=== PATIENT | female | born 1985 | race Caucasian/White ===

== ENCOUNTER 2017-07-26 11:56 | Emergency (ER) | payer BC ==
[2017-07-26] MEDS ORDERED: Sodium Chloride 0.9% 1,000 ML IV ONE (12:56)
[2017-07-26] MEDS ORDERED: Metoclopramide 10 MG/2 ML SDV IVPUSH ONE (12:56)
[2017-07-26 14:02] LABS: CHLORIDE,CL 107 mmol/L (98-110); SODIUM,NA 142 mmol/L (136-146)
[2017-07-26] MEDS ORDERED: Pantoprazole 40 MG Vial IVPUSH ONE (14:14)
[2017-07-26] MEDS ORDERED: Prochlorperazine 10 MG/2 ML SDV IVPUSH ONE (14:14)
[2017-07-26] MEDS ORDERED: Ondansetron 4 MG/2 ML SDV IVPUSH ONE (14:14)
--- NOTE | 2017-07-26 15:25 | EDM.PDOC ---
ED HPI GENERAL MEDICAL PROBLEM - General Chief Complaint: Abdominal Pain Stated Complaint: ABDOMINAL PAIN Time Seen by Provider: 07/26/17 12:22 Source of Information: Reports: Patient History Limitations: Reports: No Limitations - History of Present Illness INITIAL COMMENTS - FREE TEXT/NARRATIVE: History of present illness: [31-year-old female comes in complaining of abdominal pain and nausea. Patient was diagnosed with gastritis at the urgent clinic 1-2 days ago but indicates she continues to feel unwell.] Review of systems: As per history of present illness and below otherwise all systems reviewed and negative. Past medical history: As per history of present illness and as reviewed below otherwise noncontributory. Surgical history: As per history of present illness and as reviewed below otherwise noncontributory. Social history: No reported history of drug or alcohol abuse. Family history: As per history of present illness and as reviewed below otherwise noncontributory. Physical exam: HEENT: Atraumatic, normocephalic, pupils reactive, negative for conjunctival pallor or scleral icterus, mucous membranes moist, throat clear, neck supple, nontender, trachea midline. Lungs: Clear to auscultation, breath sounds equal bilaterally, chest nontender. Heart: S1S2, regular, negative for clicks, rubs, or JVD. Abdomen: Soft, nondistended, nontender. Negative for masses or hepatosplenomegaly. Negative for costovertebral tenderness. Pelvis: Stable nontender. Genitourinary: Deferred. Rectal: Deferred. Extremities: Atraumatic, negative for cords or calf pain. Neurovascular unremarkable. Neuro: Awake, alert, oriented. Cranial nerves II through XII unremarkable. Cerebellum unremarkable. Motor and sensory unremarkable throughout. Exam nonfocal. Assessment is benign save subjective complaint as noted in history of present illness Diagnostics: [CBC, CMP] Therapeutics: [Reglan, Zofran, Compazine, Protonix] Impression: [Gastritis] Plan: [Medication follow-up with primary care] Definitive disposition and diagnosis as appropriate pending reevaluation and review of above. Abdominal Pain Score (Numeric/FACES): 3 - Related Data Allergies Allergy/AdvReac Type Severity Reaction Status Date / Time No Known Allergies Allergy Verified 07/26/17 12:32 Home Meds: Home Meds Amoxicillin 0 mg PO TID 07/26/17 [History] Past Medical History - Past Surgical History Other HEENT Surgeries/Procedures: lasik surgery Female Surgical History: Reports: LEEP, Tubal Ligation Social & Family History - Family History Family Medical History: Noncontributory - Tobacco Use Smoking Status *Q: Never Smoker Used Tobacco, but Quit: Yes - Recreational Drug Use Recreational Drug Use: No Drug Use in Last 12 Months: No ED ROS GENERAL - Review of Systems Review Of Systems: See Below (History of present illness) ED EXAM, GENERAL - Physical Exam Exam: See Below (See history of present illness) Course - Vital Signs Last Recorded V/S: Last Vital Signs Temp 36.3 C 07/26/17 12:33 Pulse 73 07/26/17 14:37 Resp 18 07/26/17 14:37 BP 119/59 L 07/26/17 14:37 Pulse Ox 98 07/26/17 14:37 - Orders/Labs/Meds Labs: Laboratory Tests 07/26/17 07/26/17 Range/Units 13:20 13:20 WBC 9.65 (4.0-11.0) K/uL RBC 4.51 (4.30-5.90) M/uL Hgb 13.2 (12.0-16.0) g/dL Hct 38.9 (36.0-46.0) % MCV 86.3 (80.0-98.0) fL MCH 29.3 (27.0-32.0) pg MCHC 33.9 (31.0-37.0) g/dL RDW Std Deviation 37.8 (28.0-62.0) fl RDW Coeff of Kayode 12 (11.0-15.0) % Plt Count 292 (150-400) K/uL MPV 10.00 (7.40-12.00) fL Neut % (Auto) 75.8 (48.0-80.0) % Lymph % (Auto) 16.8 (16.0-40.0) % [place] % (Auto) 6.6 (0.0-15.0) % Eos % (Auto) 0.4 (0.0-7.0) % Baso % (Auto) 0.4 (0.0-1.5) % Neut # (Auto) 7.3 H (1.4-5.7) K/uL Lymph # (Auto) 1.6 (0.6-2.4) K/uL [place] # (Auto) 0.6 (0.0-0.8) K/uL Eos # (Auto) 0.0 (0.0-0.7) K/uL Baso # (Auto) 0.0 (0.0-0.1) K/uL Nucleated RBC % 0.0 /100WBC Nucleated RBCs # 0 K/uL Sodium 142 (136-146) mmol/L Potassium 3.7 (3.5-5.1) mmol/L Chloride 107 (98-110) mmol/L Carbon Dioxide 22 (21-31) mmol/L BUN 10 (6.0-23.0) mg/dL Creatinine 0.7 (0.6-1.5) mg/dL Est Cr Clr Drug Dosing 102.40 mL/min Estimated GFR (MDRD) > 60.0 ml/min Glucose 85 (60-110) mg/dL Calcium 9.9 (8.8-10.8) mg/dL Total Bilirubin 0.8 (0.1-1.5) mg/dL AST 12 (5-40) IU/L ALT 10 (8-54) IU/L Alkaline Phosphatase 53 (40-150) Total Protein 7.7 (6.0-8.0) g/dL Albumin 4.8 (3.5-5.0) g/dL Globulin 2.9 (2.0-3.5) g/dL Albumin/Globulin Ratio 1.7 (1.3-2.8) Meds: Medications Discontinued Medications Generic Name Dose Route Start Last Admin Trade Name Freq PRN Reason Stop Dose Admin Sodium Chloride 1,000 mls @ 999 mls/hr 07/26/17 12:56 07/26/17 13:41 Normal Saline IV 07/26/17 13:56 999 mls/hr STAT ONE Administration Metoclopramide HCl 10 mg 07/26/17 12:56 07/26/17 13:41 Reglan IVPUSH 07/26/17 12:57 10 mg ONETIME ONE Administration Ondansetron HCl 4 mg 07/26/17 14:14 07/26/17 14:24 Zofran IVPUSH 07/26/17 14:15 4 mg ONETIME ONE Administration Pantoprazole Sodium 40 mg 07/26/17 14:14 07/26/17 14:25 Protonix Iv IVPUSH 07/26/17 14:15 40 mg NOW ONE Administration Prochlorperazine Edisylate 10 mg 07/26/17 14:14 07/26/17 14:25 Compazine IVPUSH 07/26/17 14:15 10 mg ONETIME ONE Administration Departure - Departure Time of Disposition: 15:46 Disposition: Home, Self-Care 01 Condition: Good Clinical Impression: Gastritis - Discharge Information Instructions: Viral Gastroenteritis, Adult, [id number] Referrals: Nakia Lloyd DO [Primary Care Provider] - Forms: ED Department Discharge Additional Instructions: The following information is given to patients seen in the emergency department who are being discharged to home. This information is to outline your options for follow-up care. We provide all patients seen in our emergency department with a follow-up referral. The need for follow-up, as well as the timing and circumstances, are variable depending upon the specifics of your emergency department visit. If you don't have a primary care physician on staff, we will provide you with a referral. We always advise you to contact your personal physician following an emergency department visit to inform them of the circumstance of the visit and for follow-up with them and/or the need for any referrals to a consulting specialist. The emergency department will also refer you to a specialist when appropriate. This referral assures that you have the opportunity for follow-up care with a specialist. All of these measure are taken in an effort to provide you with optimal care, which includes your follow-up. Under all circumstances we always encourage you to contact your private physician who remains a resource for coordinating your care. When calling for follow-up care, please make the office aware that this follow-up is from your recent emergency room visit. If for any reason you are refused follow-up, please contact the [facility] Emergency Department at and asked to speak to the emergency department charge nurse. Take medication as directed Follow-up with PCP in 2-3 days Return to ED as needed as discussed
[2017-07-26 15:58] VITALS: BP 129/63
== END 2017-07-26 15:53 | disposition home or self-care (01) ==
LOC: MW.ED 11:56
DX: K29.70 Gastritis, unspecified, without bleeding (principal)
CPT/HCPCS: 36415; 80053; 85025; 96361; 96374; 96375; 99284; C9113; J0780; J2405; J2765; J7040; 99283

== ENCOUNTER 2017-08-19 09:11 | Emergency (ER) | payer BC ==
--- NOTE | 2017-08-19 09:34 | EDM.PDOC ---
ED HPI GENERAL MEDICAL PROBLEM - General Chief Complaint: Lower Extremity Injury/Pain Stated Complaint: L LEG PAIN Time Seen by Provider: 08/19/17 09:33 Source of Information: Reports: Patient - History of Present Illness INITIAL COMMENTS - FREE TEXT/NARRATIVE: HISTORY AND PHYSICAL: History of present illness: [Eloina had left calf pain for a week she has history of blood clots No fever nausea vomiting chills sweats no chest pain shortness breath headache dizziness palpitation about a urine symptoms ] Review of systems: As per history of present illness and below otherwise all systems reviewed and negative. Past medical history: As per history of present illness and as reviewed below otherwise noncontributory. Surgical history: As per history of present illness and as reviewed below otherwise noncontributory. Social history: No reported history of drug or alcohol abuse. Family history: As per history of present illness and as reviewed below otherwise noncontributory. Physical exam: HEENT: Atraumatic, normocephalic, pupils reactive, negative for conjunctival pallor or scleral icterus, mucous membranes moist, throat clear, neck supple, nontender, trachea midline. Lungs: Clear to auscultation, breath sounds equal bilaterally, chest nontender. Heart: S1S2, regular, negative for clicks, rubs, or JVD. Abdomen: Soft, nondistended, nontender. Negative for masses or hepatosplenomegaly. Negative for costovertebral tenderness. Pelvis: Stable nontender. Genitourinary: Deferred. Rectal: Deferred. Extremities: Atraumatic, negative for cords or calf pain. Neurovascular unremarkable. Neuro: Awake, alert, oriented. Cranial nerves II through XII unremarkable. Cerebellum unremarkable. Motor and sensory unremarkable throughout. Exam nonfocal. Diagnostics: [Venous Doppler on the left] Therapeutics: [] Impression: No DVT Medical screening exam Definitive disposition and diagnosis as appropriate pending reevaluation and review of above. Left Calf Pain Score (Numeric/FACES): 4 - Related Data Allergies Allergy/AdvReac Type Severity Reaction Status Date / Time No Known Allergies Allergy Verified 08/19/17 09:33 Home Meds: Home Meds Amoxicillin 0 mg PO TID 07/26/17 [History] Ondansetron [Zofran] 4 mg PO Q4H #30 tab 07/26/17 [Rx] Ranitidine HCl [Ranitidine] 150 mg PO BID #60 tablet 07/26/17 [Rx] Past Medical History - Past Surgical History Other HEENT Surgeries/Procedures: lasik surgery Female Surgical History: Reports: LEEP, Tubal Ligation Social & Family History - Family History Family Medical History: Noncontributory - Tobacco Use Smoking Status *Q: Never Smoker Used Tobacco, but Quit: Yes - Recreational Drug Use Recreational Drug Use: No Drug Use in Last 12 Months: No Review of Systems - Review of Systems Review Of Systems: ROS reveals no pertinent complaints other than HPI. ED EXAM, GENERAL - Physical Exam Exam: See Below Course - Vital Signs Last Recorded V/S: Last Vital Signs Temp 98.6 F 08/19/17 09:33 Pulse 76 08/19/17 09:33 Resp 18 08/19/17 09:33 BP 141/82 H 08/19/17 09:33 Pulse Ox 98 08/19/17 09:33 Departure - Departure Time of Disposition: 11:49 Disposition: Home, Self-Care 01 Condition: Good Clinical Impression: Encounter for medical screening examination - Discharge Information Referrals: Nakia Lloyd DO [Primary Care Provider] - Forms: ED Department Discharge Additional Instructions: The following information is given to patients seen in the emergency department who are being discharged to home. This information is to outline your options for follow-up care. We provide all patients seen in our emergency department with a follow-up referral. The need for follow-up, as well as the timing and circumstances, are variable depending upon the specifics of your emergency department visit. If you don't have a primary care physician on staff, we will provide you with a referral. We always advise you to contact your personal physician following an emergency department visit to inform them of the circumstance of the visit and for follow-up with them and/or the need for any referrals to a consulting specialist. The emergency department will also refer you to a specialist when appropriate. This referral assures that you have the opportunity for follow-up care with a specialist. All of these measure are taken in an effort to provide you with optimal care, which includes your follow-up. Under all circumstances we always encourage you to contact your private physician who remains a resource for coordinating your care. When calling for follow-up care, please make the office aware that this follow-up is from your recent emergency room visit. If for any reason you are refused follow-up, please contact the [facility] emergency department at and asked to speak to the emergency department charge nurse.
--- NOTE | 2017-08-19 10:46 | US ---
Lower extremity venous Doppler History: possible deep vein thrombosis Comparison: None Findings: Lower extremity images demonstrate normal respiratory phasicity competence absent pulsatili ty and compression with no evidence of deep vein thrombosis throughout the left lower extremity. Impression:: Normal exam
[2017-08-19 12:08] VITALS: BP 107/80
== END 2017-08-19 12:06 | disposition home or self-care (01) ==
LOC: MW.ED 09:11
DX: Z13.9 Encounter for screening, unspecified (principal); M79.662 Pain in left lower leg
CPT/HCPCS: 93971-26-LT; 93971-LT; 99283; 99283-25

== ENCOUNTER 2017-09-19 20:44 | Emergency (ER) | payer BC ==
--- NOTE | 2017-09-19 21:44 | EDM.PDOC ---
<Crystal Donis - Last Filed: 09/19/17 22:07> ED HPI GENERAL MEDICAL PROBLEM - General Chief Complaint: Chest Pain Stated Complaint: LEG PAIN Time Seen by Provider: 09/19/17 21:20 Source of Information: Reports: Patient History Limitations: Reports: No Limitations - History of Present Illness INITIAL COMMENTS - FREE TEXT/NARRATIVE: HISTORY AND PHYSICAL: History of present illness: [Patient comes to the emergency room complaining of chest tightness and discomfort and pain to her left leg. She presented to the emergency room partly 6 weeks ago for left leg pain at which time she had a ultrasound of her left lower extremity which was negative for DVT. She has continued to have this same leg pain since she was last evaluated in the ER. She has not followed up with her PCP since that ER visit. Daniela she was watching a wrestling match in [place] when she noticed a tightness to her left mid chest. She describes it as a pressure and tightness and discomfort. The pain radiates into her left shoulder around her neck and into her upper back. It does not take her breath away but she feels that she can't breathe as deeply with this pain in her chest. She took one lorazepam at the onset of the chest pain which provided no relief. Her father at the age of 34 due to blood clots. Patient states that she's felt very anxious since her last ER visit, questioning that the ultrasound was read incorrectly and she actually has a blood clot that was missed. ] Review of systems: As per history of present illness and below otherwise all systems reviewed and negative. Past medical history: As per history of present illness and as reviewed below otherwise noncontributory. Surgical history: As per history of present illness and as reviewed below otherwise noncontributory. Social history: No reported history of drug or alcohol abuse. Family history: As per history of present illness and as reviewed below otherwise noncontributory. Physical exam: HEENT: Atraumatic, normocephalic. Oral mucous membranes are pink and moist. Neck: Supple, no lymphadenopathy or thyromegaly noted. Lungs: Clear to auscultation, breath sounds equal bilaterally. No wheezing crackles or rales. Heart: S1S2, regular rate and rhythm. No murmur gallop click or rub. Abdomen: Soft, nondistended, nontender. Negative for masses, guarding or rebound. Pelvis: Stable nontender. Genitourinary: Deferred. Rectal: Deferred. Extremities: Atraumatic, negative for cords or calf pain. Negative Homans sign. No erythema warmth or swelling to either calf. Neurovascular unremarkable. Neuro: Awake, alert, oriented. Motor and sensory unremarkable throughout. Exam nonfocal. Psych: Is conversational interacts with examiner appropriately. She is tearful on and off throughout conversation. Diagnostics: [CBC, CMP, TSH, d-dimer, troponin, PT/INR, EKG, chest x-ray] Therapeutics: [] Impression: [] Plan: [Chest x-ray shows no abnormalities. ] Definitive disposition and diagnosis as appropriate pending reevaluation and review of above. chest Pain Score (Numeric/FACES): 3 left leg Pain Score (Numeric/FACES): 5 - Related Data Allergies Allergy/AdvReac Type Severity Reaction Status Date / Time No Known Allergies Allergy Verified 09/19/17 21:05 Home Meds: Home Meds LORazepam 0.25 mg PO ASDIRECTED PRN 09/19/17 [History] Ranitidine HCl [Ranitidine] 150 mg PO DAILY 09/19/17 [History] Past Medical History HEENT History: Reports: None Genitourinary History: Reports: None Psychiatric History: Reports: Anxiety - Infectious Disease History Infectious Disease History: Reports: Chicken Pox - Past Surgical History Other HEENT Surgeries/Procedures: lasik surgery Female Surgical History: Reports: LEEP, Tubal Ligation Social & Family History - Family History Family Medical History: Noncontributory - Tobacco Use Smoking Status *Q: Never Smoker Used Tobacco, but Quit: Yes Second Hand Smoke Exposure: No - Caffeine Use Caffeine Use: Reports: Soda - Recreational Drug Use Recreational Drug Use: No Drug Use in Last 12 Months: No ED ROS GENERAL - Review of Systems Review Of Systems: ROS reveals no pertinent complaints other than HPI. ED EXAM, GENERAL - Physical Exam Exam: See Below Course - Vital Signs Last Recorded V/S: Last Vital Signs Temp 98 F 09/19/17 20:53 Pulse 79 09/19/17 23:07 Resp 14 09/19/17 23:07 BP 115/72 09/19/17 23:07 Pulse Ox 100 09/19/17 23:07 - Orders/Labs/Meds Orders: Active Orders 24 hr Category Date Time Status EKG Documentation Completion [RC] STAT Care 09/19/17 21:00 Active Ang Chest [CT] Stat Exams 09/19/17 22:23 Taken Chest 2V [CR] Stat Exams 09/19/17 21:32 Taken Venous Doppler Lwr Ext Lt [US] Stat Exams 09/19/17 22:23 Taken Labs: Laboratory Tests 09/19/17 09/19/17 09/19/17 Range/Units 21:41 21:41 21:41 WBC 9.57 (4.0-11.0) K/uL RBC 4.40 (4.30-5.90) M/uL Hgb 12.9 (12.0-16.0) g/dL Hct 38.0 (36.0-46.0) % MCV 86.4 (80.0-98.0) fL MCH 29.3 (27.0-32.0) pg MCHC 33.9 (31.0-37.0) g/dL RDW Std Deviation 39.2 (28.0-62.0) fl RDW Coeff of Kayode 12 (11.0-15.0) % Plt Count 308 (150-400) K/uL MPV 9.90 (7.40-12.00) fL Neut % (Auto) 63.9 (48.0-80.0) % Lymph % (Auto) 25.3 (16.0-40.0) % [place] % (Auto) 9.0 (0.0-15.0) % Eos % (Auto) 1.3 (0.0-7.0) % Baso % (Auto) 0.5 (0.0-1.5) % Neut # (Auto) 6.1 H (1.4-5.7) K/uL Lymph # (Auto) 2.4 (0.6-2.4) K/uL [place] # (Auto) 0.9 H (0.0-0.8) K/uL Eos # (Auto) 0.1 (0.0-0.7) K/uL Baso # (Auto) 0.1 (0.0-0.1) K/uL Nucleated RBC % 0.0 /100WBC Nucleated RBCs # 0 K/uL INR 1.16 D-Dimer, Quantitative 0.56 H (0.0-0.52) mg/LFEU Sodium 140 (136-145) mmol/L Potassium 3.7 (3.5-5.1) mmol/L Chloride 104 (98-107) mmol/L Carbon Dioxide 24.4 (21.0-32.0) mmol/L BUN 13 (7.0-18.0) mg/dL Creatinine 0.7 (0.6-1.0) mg/dL Est Cr Clr Drug Dosing 101.48 mL/min Estimated GFR (MDRD) > 60.0 ml/min Glucose 90 (74-106) mg/dL Calcium 10.5 H (8.5-10.1) mg/dL Total Bilirubin 0.6 (0.2-1.0) mg/dL AST 12 L (15-37) U/L ALT 16 (14-63) U/L Alkaline Phosphatase 49 (46-116) U/L Troponin I < 0.050 (0.000-0.056) ng/mL Total Protein 7.7 (6.4-8.2) g/dL Albumin 4.5 (3.4-5.0) g/dL Globulin 3.2 (2.0-3.5) g/dL Albumin/Globulin Ratio 1.4 (1.3-2.8) TSH 3rd Generation 1.60 (0.36-3.74) uIU/mL Urine Color Urine Appearance Urine pH (5.0-8.0) Ur Specific [place] (1.001-1.035) Urine Protein (NEGATIVE) mg/dL Urine Glucose (UA) (NEGATIVE) mg/dL Urine Ketones (NEGATIVE) mg/dL Urine Occult Blood (NEGATIVE) Urine Nitrite (NEGATIVE) Urine Bilirubin (NEGATIVE) Urine Urobilinogen (<2.0) EU/dL Ur Leukocyte Esterase (NEGATIVE) Urine RBC (0-2/HPF) Urine WBC (0-5/HPF) Ur Epithelial Cells (NONE-FEW) Urine Bacteria (NEGATIVE) 09/19/17 Range/Units 22:50 WBC (4.0-11.0) K/uL RBC (4.30-5.90) M/uL Hgb (12.0-16.0) g/dL Hct (36.0-46.0) % MCV (80.0-98.0) fL MCH (27.0-32.0) pg MCHC (31.0-37.0) g/dL RDW Std Deviation (28.0-62.0) fl RDW Coeff of [place] (11.0-15.0) % Plt Count (150-400) K/uL MPV (7.40-12.00) fL Neut % (Auto) (48.0-80.0) % Lymph % (Auto) (16.0-40.0) % [place] % (Auto) (0.0-15.0) % Eos % (Auto) (0.0-7.0) % Baso % (Auto) (0.0-1.5) % Neut # (Auto) (1.4-5.7) K/uL Lymph # (Auto) (0.6-2.4) K/uL [place] # (Auto) (0.0-0.8) K/uL Eos # (Auto) (0.0-0.7) K/uL Baso # (Auto) (0.0-0.1) K/uL Nucleated RBC % /100WBC Nucleated RBCs # K/uL INR D-Dimer, Quantitative (0.0-0.52) mg/LFEU Sodium (136-145) mmol/L Potassium (3.5-5.1) mmol/L Chloride (98-107) mmol/L Carbon Dioxide (21.0-32.0) mmol/L BUN (7.0-18.0) mg/dL Creatinine (0.6-1.0) mg/dL Est Cr Clr Drug Dosing mL/min Estimated GFR (MDRD) ml/min Glucose (74-106) mg/dL Calcium (8.5-10.1) mg/dL Total Bilirubin (0.2-1.0) mg/dL AST (15-37) U/L ALT (14-63) U/L Alkaline Phosphatase (46-116) U/L Troponin I (0.000-0.056) ng/mL Total Protein (6.4-8.2) g/dL Albumin (3.4-5.0) g/dL Globulin (2.0-3.5) g/dL Albumin/Globulin Ratio (1.3-2.8) TSH 3rd Generation (0.36-3.74) uIU/mL Urine Color YELLOW Urine Appearance CLEAR Urine pH 7.0 (5.0-8.0) Ur Specific [place] 1.010 (1.001-1.035) Urine Protein NEGATIVE (NEGATIVE) mg/dL Urine Glucose (UA) NEGATIVE (NEGATIVE) mg/dL Urine Ketones NEGATIVE (NEGATIVE) mg/dL Urine Occult Blood TRACE-INTACT (NEGATIVE) Urine Nitrite NEGATIVE (NEGATIVE) Urine Bilirubin NEGATIVE (NEGATIVE) Urine Urobilinogen 0.2 (<2.0) EU/dL Ur Leukocyte Esterase NEGATIVE (NEGATIVE) Urine RBC 1-3 (0-2/HPF) Urine WBC 0-2 (0-5/HPF) Ur Epithelial Cells OCCASIONAL (NONE-FEW) Urine Bacteria RARE (NEGATIVE) Meds: Medications Discontinued Medications Generic Name Dose Route Start Last Admin Trade Name Freq PRN Reason Stop Dose Admin Iopamidol 50 ml 09/19/17 23:00 09/19/17 23:00 Isovue-370 (76%) IV 09/19/17 23:01 50 ml ONETIME ONE Administration Departure - Departure Disposition: Home, Self-Care 01 Clinical Impression: Encounter for medical screening examination Referrals: Nakia Lloyd DO [Primary Care Provider] - Forms: ED Department Discharge Additional Instructions: The following information is given to patients seen in the emergency department who are being discharged to home. This information is to outline your options for follow-up care. We provide all patients seen in our emergency department with a follow-up referral. The need for follow-up, as well as the timing and circumstances, are variable depending upon the specifics of your emergency department visit. If you don't have a primary care physician on staff, we will provide you with a referral. We always advise you to contact your personal physician following an emergency department visit to inform them of the circumstance of the visit and for follow-up with them and/or the need for any referrals to a consulting specialist. The emergency department will also refer you to a specialist when appropriate. This referral assures that you have the opportunity for follow-up care with a specialist. All of these measure are taken in an effort to provide you with optimal care, which includes your follow-up. Under all circumstances we always encourage you to contact your private physician who remains a resource for coordinating your care. When calling for follow-up care, please make the office aware that this follow-up is from your recent emergency room visit. If for any reason you are refused follow-up, please contact the [facility] emergency department at and asked to speak to the emergency department charge nurse. - My Orders Last 24 Hours: My Active Orders 09/19/17 22:23 Ang Chest [CT] Stat Venous Doppler Lwr Ext Lt [US] Stat - Assessment/Plan Last 24 Hours: My Active Orders 09/19/17 22:23 Ang Chest [CT] Stat Venous Doppler Lwr Ext Lt [US] Stat <Omar Briscoe - Last Filed: 09/20/17 00:16> ED HPI GENERAL MEDICAL PROBLEM - History of Present Illness INITIAL COMMENTS - FREE TEXT/NARRATIVE: Patient was signed out to me by Crystal to follow lab and imaging Seen and examined the patient agree with above Physical exam HEENT grossly within normal limits Chest clear CV regular Abdomen benign Extremities atraumatic negative for calf pain or cords or Homans sign is negative no erythema warmth or swelling in either calf neurovascular unremarkable [place] alert nonfocal D-dimer was positive leading to CT and Jell-O chest which was negative as well as ultrasound left lower extremity rule out DVT also negative no DVT Assessment Left lower extremity pain resolved Anxiety about health Plan Patient reassured No specific recommendation Follow-up primary care in 2 weeks Departure - Departure Time of Disposition: 00:15 Condition: Good
[2017-09-19 22:19] LABS: CHLORIDE,CL 104 mmol/L (98-107); SODIUM,NA 140 mmol/L (136-145)
[2017-09-19] MEDS ORDERED: Iopamidol 755 MG/ML 50 ML Bottle IV ONE (23:00)
[2017-09-20 00:18] VITALS: BP 117/83
--- NOTE | 2017-09-22 05:38 | CR ---
EXAM DATE: 09/19/17 PATIENT'S AGE: 32 Patient: BORIS KIRKLAND Facility: [place], [place] Site . Site : 1985 Study: XRay Chest [id number] 10:00:11 PM Ordering Physician: Doctor Hunter Final Report: INDICATION: Chest pain, shortness of breath TECHNIQUE: Chest 2 views. COMPARISON: None FINDINGS: Cardiovascular and mediastinum: Heart size and vasculature are normal in caliber and appearance. Mediastinum is within normal limits. Lungs and pleural spaces: Lungs are clear. No sign of infiltrate or mass. No sign of pleural effusion. No pneumothorax. Bones and soft tissues: No significant findings. IMPRESSION: No sign of acute disease. Dictated by Olivia Hector MD @ Sep 19 2017 10:02PM (Electronic Signature) Report Signed by Proxy. MALINDA
--- NOTE | 2017-09-22 05:41 | CT ---
EXAM DATE: 09/19/17 PATIENT'S AGE: 32 Patient: BORIS KIRKLAND Facility: [place], [place] Site . Site : 1985 Study: CT Chest Angio [id number]/[id number] 11:02:12 PM Ordering Physician: Doctor Hunter Final Report: INDICATION: Chest pain, elevated D-dimer. TECHNIQUE: CT chest with i.v. contrast using pulmonary angiographic technique. Coronal and sagittal reformats were obtained. CONTRAST: 50 mL Isovue 370 COMPARISON: None FINDINGS: Cardiovascular: The pulmonary arteries are unremarkable in enhancement with no evidence of acute pulmonary embolism. The heart has an unremarkable appearance and size. No sign of aneurysm or dissection in the thoracic aorta. Mediastinum: No mass or adenopathy seen. Lungs: There is a 4 mm subpleural nodule in the posterior right lower lobe on image 38. Pleura and pericardium: No sign of pleural effusion seen. No significant pericardial effusion is present. Chest wall and axilla: No mass or adenopathy seen. Bones: Unremarkable for age. Upper abdomen: Unremarkable. IMPRESSIONS: 1. No CT evidence of pulmonary emboli seen. 2. There is a 4 mm subpleural nodule in the posterior right lower lobe on image 38. If the patient has a high risk stratification, optional followup Chest CT in 12 months is advised in accordance with the 2017 Revised Fleischner Society Recommendations. Dictated by Edgard Mckay MD @ 09/19/2017 11:13:34 PM Dictated by: Edgard Mckay MD @ 09/19/2017 23:13:45 (Electronic Signature) Report Signed by Proxy. MALINDA
--- NOTE | 2017-09-22 05:42 | US ---
EXAM DATE: 09/19/17 PATIENT'S AGE: 32 Patient: BORIS KIRKLAND Facility: [place], [place] Site . Site : 1985 Study: US Extremity Left -09/19/2017 11:57:46 PM Ordering Physician: Doctor Hunter Final Report: INDICATION: elevated d dimer TECHNIQUE: Ultrasound venous duplex lower left extremity. Compression venous exam was performed using torres-scale, color Doppler, and spectral Doppler analysis. COMPARISON: None FINDINGS: Sonographic imaging demonstrates the left common femoral, deep femoral, superficial femoral, popliteal, posterior tibial and greater saphenous and the contralateral right common femoral veins to be fully compressible with normal color Doppler blood flow. IMPRESSION: No evidence of deep venous thrombosis within the left lower extremity. Dictated by Brent Navarro MD @ 09/20/2017 12:01:48 AM Dictated by: Brent Navarro MD @ 09/20/2017 00:01:54 (Electronic Signature) Report Signed by Proxy. MALINDA
== END 2017-09-20 00:22 | disposition home or self-care (01) ==
LOC: MW.ED 20:44
DX: R07.89 Other chest pain (principal); M79.605 Pain in left leg; Z00.00 Encounter for general adult medical examination without abnormal findings; F41.9 Anxiety disorder, unspecified; Z87.891 Personal history of nicotine dependence
CPT/HCPCS: 36415; 71046; 71275; 80053; 81001; 84443; 84484; 85025; 85379; 85610; 93971; 99284; Q9967; 78227; 78227-26; 99283; A9537

== ENCOUNTER 2017-09-29 10:41 | Day surgery (SDC) | payer BC ==
[~2017-09-29 10:41] MED LIST: Lactated Ringers 1,000 ML IV SCH
--- NOTE | 2017-09-29 11:34 | PCM.PREANE ---
Preanesthetic Assessment - Anesthesia/Transfusion/Family Hx Anesthesia History: Prior Anesthesia Without Reaction Family History of Anesthesia Reaction: No Transfusion History: No Prior Transfusion(s) - Review of Systems General: No Symptoms Pulmonary: No Symptoms Cardiovascular: No Symptoms Neurological: No Symptoms Other: Reports: None - Physical Assessment NPO Status Date: 09/28/17 Height: 1.63 m Weight: 76.204 kg ASA Class: 2 Mental Status: Alert & Oriented x3 Airway Class: Mallampati = 1 Dentition: Reports: Normal Dentition ROM/Head Extension: Full Lungs: Clear to Auscultation, Normal Respiratory Effort Cardiovascular: Regular Rate, Regular Rhythm - Lab Values: Laboratory Last Values Urine HCG, Qual NEGATIVE (NEGATIVE) 09/29/17 10:48 - Allergies Allergies/Adverse Reactions: Allergies Allergy/AdvReac Type Severity Reaction Status Date / Time No Known Allergies Allergy Verified 09/25/17 08:32 - Anesthesia Plan Pre-Op Medication Ordered: None - Acknowledgements Anesthesia Type Planned: MAC Pt an Appropriate Candidate for the Planned Anesthesia: Yes Alternatives and Risks of Anesthesia Discussed w Pt/Guardian: Yes Pt/Guardian Understands and Agrees with Anesthesia Plan: Yes PreAnesthesia Questionnaire HEENT History: Reports: None Cardiovascular History: Reports: None Respiratory History: Reports: Asthma Gastrointestinal History: Reports: GERD Other Gastrointestinal History: epigastric pain Genitourinary History: Reports: None 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: Musculoskeletal History: Reports: None Neurological History: Reports: Migraines Psychiatric History: Reports: Anxiety Endocrine/Metabolic History: Reports: None Hematologic History: Reports: None Immunologic History: Reports: None Oncologic (Cancer) History: Reports: None Dermatologic History: Reports: None - Infectious Disease History Infectious Disease History: Reports: Chicken Pox - Past Surgical History Head Surgeries/Procedures: Reports: None HEENT Surgical History: Reports: LASIK Other HEENT Surgeries/Procedures: lasik surgery Female Surgical History: Reports: Section, LEEP, Tubal Ligation - SUBSTANCE USE Smoking Status *Q: Former Smoker Tobacco Use Within Last Twelve Months: No Second Hand Smoke Exposure: No Recreational Drug Use History: No - HOME MEDS Home Medications: Home Meds LORazepam 0.25 mg PO ASDIRECTED PRN 09/19/17 [History] Ranitidine HCl [Ranitidine] 150 mg PO ASDIRECTED 09/19/17 [History] Albuterol [Ventolin HFA] 2 puff INH ASDIRECTED PRN 09/25/17 [History] Lactobacillus Acidophilus [Probiotic] 1 tab PO DAILY 09/25/17 [History] - CURRENT (IN HOUSE) MEDS Current Meds: Current Medications Lactated Ringer's (Ringers, Lactated) 1,000 mls @ 125 mls/hr IV ASDIRECTED BERONICA Last Admin: 09/29/17 11:10 Dose: 125 mls/hr
[2017-09-29] MEDS ORDERED: Ondansetron 4 MG/2 ML SDV ONE (12:10)
[2017-09-29] MEDS ORDERED: Propofol 200 MG/20 ML SDV ONE (12:11)
[2017-09-29] MEDS ORDERED: Midazolam 1 MG/ML 2 ML SDV ONE (12:11)
[2017-09-29] MEDS ORDERED: fentaNYL 100 MCG/2 ML SDV ONE (12:11)
--- NOTE | 2017-09-29 12:57 | PCM.OPNOTE ---
- General Post-Op/Procedure Note Date of Surgery/Procedure: 09/29/17 Operative Procedure(s): Esophagogastroduodenoscopy with biopsy Pre Op Diagnosis: Epigastric pain with nausea and vomiting Post-Op Diagnosis: Moderate acute gastritis Anesthesia Technique: MAC (ASA II) Primary Surgeon: Alberto Paul Condition: Good Free Text/Narrative:: DICTATION [id number] CPT CODE 37145
[2017-09-29] MEDS ORDERED: Lactated Ringers 1,000 ML IV SCH (13:00)
[2017-09-29 13:31] VITALS: BP 107/64
--- NOTE | 2017-09-29 13:43 | PCM48HPAN ---
Post Anesthesia Note - EVALUATION WITHIN 48HRS OF ANESTHETIC Vital Signs in Normal Range: Yes Patient Participated in Evaluation: Yes Respiratory Function Stable: Yes Airway Patent: Yes Cardiovascular Function Stable: Yes Hydration Status Stable: Yes Pain Control Satisfactory: Yes Nausea and Vomiting Control Satisfactory: Yes Mental Status Recovered: Yes Resp Rate: 15
--- NOTE | 2017-09-29 13:43 | PCM.POSTAN ---
POST ANESTHESIA ASSESSMENT - MENTAL STATUS Mental Status: Alert, Oriented - RESPIRATORY Respiratory Status: Respiratory Rate WNL, Airway Patent, O2 Saturation Stable - CARDIOVASCULAR CV Status: Pulse Rate WNL, Blood Pressure Stable - GASTROINTESTINAL GI Status: No Symptoms - POST OP HYDRATION Hydration Status: Adequate & Stable
--- NOTE | 2017-09-30 09:47 | OR ---
SURGEON: Alberto Paul M.D. DATE OF PROCEDURE: 09/29/2017 OPERATION PERFORMED: Esophagogastroduodenoscopy with biopsy. ANESTHESIA: MAC. ASA CLASSIFICATION: II. PREOPERATIVE DIAGNOSIS: Epigastric pain with nausea and vomiting. POSTOPERATIVE DIAGNOSIS: Gastritis without ulceration. DESCRIPTION OF PROCEDURE: The patient was taken to the endoscopy room and positioned on the endoscopy table in the supine position. Time-out was called for appropriate identification of patient and procedure. Monitored anesthesia care was provided. The bite block was placed between the patient's teeth. The gastroscope was inserted through the bite block into the oropharynx and advanced without difficulty through the esophagus and stomach into the duodenum, where examination was carried out in a retrograde fashion. The duodenum shows no acute inflammatory changes or ulcerations. Duodenal biopsies were obtained. The gastroscope was then withdrawn to the stomach, which does show mild-to- moderate gastritis. No ulcerations were noted. Antral biopsies were obtained to look for the presence of Helicobacter pylori. The gastroscope was then retroflexed to visualize the proximal stomach. No mid or proximal lesions were identified. No ulcerations were noted in the proximal stomach. The gastroscope was then straightened and slowly withdrawn aspirating the stomach as the scope was withdrawn. GE junction was well defined and shows no acute inflammatory changes or ulcerations. The mid and proximal esophagus demonstrated good contractility. No other lesions were identified. The vocal cords were visualized as the scope was removed. No vocal cord lesions were identified. The cords moved symmetrically. The gastroscope was then removed with the patient having tolerated the procedure well. She was taken to recovery room in stable condition. SUMEET / CHARLA /[id number]
== END 2017-09-29 13:20 | disposition home or self-care (01) ==
LOC: MW.SDS 10:41
PROVIDERS: ATTEND Surgery
DX: K29.70 Gastritis, unspecified, without bleeding (principal); J45.909 Unspecified asthma, uncomplicated; K21.9 Gastro-esophageal reflux disease without esophagitis; F41.9 Anxiety disorder, unspecified; Z79.899 Other long term (current) drug therapy; Z87.891 Personal history of nicotine dependence
CPT/HCPCS: 43239; 81025; J2250; J2405; J7120; 88305; 88312; J2704; J3010

== ENCOUNTER 2017-10-01 08:21 | Emergency (ER) | payer BC ==
--- NOTE | 2017-10-01 09:02 | EDM.PDOC ---
ED HPI GENERAL MEDICAL PROBLEM - General Chief Complaint: Lower Extremity Injury/Pain Stated Complaint: LT LEG HURTS Time Seen by Provider: 10/01/17 08:59 Source of Information: Reports: Patient - History of Present Illness INITIAL COMMENTS - FREE TEXT/NARRATIVE: HISTORY AND PHYSICAL: History of present illness: [Patient with anxiety presents with left lower extremity pain, she is convinced she has a blood clot/DVT. She has been evaluated twice in the ER for DVT as well as having CT aNGiO chest due to a very slightly positive d-dimer] and otherwise negative lab workup she has no physical findings consistent with DVT no leg swelling no redness warmth Homans is negative she is able to stand on her left lower extremity and rise to her toes she does not elicit any pain behavior while doing this pain today is on her inner thigh. She is followed with her primary care which is considered a sciatic distribution pain she has tried lidocaine patches on her back and will be trying them directly on the area of pain she has an appointment to follow on Friday with her primary care nor does he Otherwise no fever nausea vomiting chest pain shortness breath headache dizziness palpitation no bowel or urine symptoms Review of systems: As per history of present illness and below otherwise all systems reviewed and negative. Past medical history: As per history of present illness and as reviewed below otherwise noncontributory. Surgical history: As per history of present illness and as reviewed below otherwise noncontributory. Social history: No reported history of drug or alcohol abuse. Family history: As per history of present illness and as reviewed below otherwise noncontributory. Physical exam: HEENT: Atraumatic, normocephalic, pupils reactive, negative for conjunctival pallor or scleral icterus, mucous membranes moist, throat clear, neck supple, nontender, trachea midline. Lungs: Clear to auscultation, breath sounds equal bilaterally, chest nontender. Heart: S1S2, regular, negative for clicks, rubs, or JVD. Abdomen: Soft, nondistended, nontender. Negative for masses or hepatosplenomegaly. Negative for costovertebral tenderness. Pelvis: Stable nontender. Genitourinary: Deferred. Rectal: Deferred. Extremities: Atraumatic, negative for cords or calf pain. Neurovascular unremarkable. Neuro: Awake, alert, oriented. Cranial nerves II through XII unremarkable. Cerebellum unremarkable. Motor and sensory unremarkable throughout. Exam nonfocal. Diagnostics: [Ultrasound CT angiogram lab on file] Therapeutics: [Continue current therapies lidocaine patch Tylenol heat ice and stretching] Impression: [Anxiety about health] Definitive disposition and diagnosis as appropriate pending reevaluation and review of above. - Related Data Allergies Allergy/AdvReac Type Severity Reaction Status Date / Time No Known Allergies Allergy Verified 09/25/17 08:32 Home Meds: Home Meds LORazepam 0.25 mg PO ASDIRECTED PRN 09/19/17 [History] Ranitidine HCl [Ranitidine] 150 mg PO ASDIRECTED 09/19/17 [History] Albuterol [Ventolin HFA] 2 puff INH ASDIRECTED PRN 09/25/17 [History] Lactobacillus Acidophilus [Probiotic] 1 tab PO DAILY 09/25/17 [History] Past Medical History HEENT History: Reports: None Cardiovascular History: Reports: None Respiratory History: Reports: Asthma Gastrointestinal History: Reports: GERD Other Gastrointestinal History: epigastric pain Genitourinary History: Reports: None 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: Musculoskeletal History: Reports: None Neurological History: Reports: Migraines Psychiatric History: Reports: Anxiety Endocrine/Metabolic History: Reports: None Hematologic History: Reports: None Immunologic History: Reports: None Oncologic (Cancer) History: Reports: None Dermatologic History: Reports: None - Infectious Disease History Infectious Disease History: Reports: Chicken Pox - Past Surgical History Head Surgeries/Procedures: Reports: None HEENT Surgical History: Reports: LASIK Other HEENT Surgeries/Procedures: lasik surgery Female Surgical History: Reports: Section, LEEP, Tubal Ligation Social & Family History - Family History Family Medical History: Noncontributory - Tobacco Use Smoking Status *Q: Former Smoker Used Tobacco, but Quit: Yes Month/Year Tobacco Last Used: quit smoking 7 yrs ago Second Hand Smoke Exposure: No - Caffeine Use Caffeine Use: Reports: Soda - Recreational Drug Use Recreational Drug Use: No Drug Use in Last 12 Months: No Review of Systems - Review of Systems Review Of Systems: ROS reveals no pertinent complaints other than HPI. ED EXAM, GENERAL - Physical Exam Exam: See Below Departure - Departure Time of Disposition: 09:02 Disposition: Home, Self-Care 01 Condition: Good Clinical Impression: Anxiety about health - Discharge Information Referrals: PCP,None [Primary Care Provider] - Additional Instructions: The following information is given to patients seen in the emergency department who are being discharged to home. This information is to outline your options for follow-up care. We provide all patients seen in our emergency department with a follow-up referral. The need for follow-up, as well as the timing and circumstances, are variable depending upon the specifics of your emergency department visit. If you don't have a primary care physician on staff, we will provide you with a referral. We always advise you to contact your personal physician following an emergency department visit to inform them of the circumstance of the visit and for follow-up with them and/or the need for any referrals to a consulting specialist. The emergency department will also refer you to a specialist when appropriate. This referral assures that you have the opportunity for follow-up care with a specialist. All of these measure are taken in an effort to provide you with optimal care, which includes your follow-up. Under all circumstances we always encourage you to contact your private physician who remains a resource for coordinating your care. When calling for follow-up care, please make the office aware that this follow-up is from your recent emergency room visit. If for any reason you are refused follow-up, please contact the [facility] emergency department at and asked to speak to the emergency department charge nurse.
[2017-10-01 18:45] VITALS: BP 121/60
== END 2017-10-01 09:14 | disposition home or self-care (01) ==
LOC: MW.ED 08:21
DX: F41.9 Anxiety disorder, unspecified (principal); Z79.899 Other long term (current) drug therapy; Z87.891 Personal history of nicotine dependence
CPT/HCPCS: 99283

== ENCOUNTER 2017-11-11 12:40 | Emergency (ER) | payer BC ==
[2017-11-11 13:08] VITALS: BP 144/70
--- NOTE | 2017-11-11 13:34 | CR ---
EXAMINATION: Two-view chest (PA and Lateral views). HISTORY: Shortness of breath. FINDINGS: The trachea is midline. The cardiomediastinal silhouette is within normal limits. No pulmonary infilt rates, effusions or pneumothorax. Osseous structures appear unremarkable. IMPRESSION: No acute cardiopulmonary process.
--- NOTE | 2017-11-11 13:42 | EDM.PDOC ---
ED HPI GENERAL MEDICAL PROBLEM - General Chief Complaint: Respiratory Problem Stated Complaint: cough with blood and chest pain Time Seen by Provider: 11/11/17 13:05 Source of Information: Reports: Patient History Limitations: Reports: No Limitations - History of Present Illness INITIAL COMMENTS - FREE TEXT/NARRATIVE: HISTORY AND PHYSICAL: History of present illness: Patient is a 32-year-old female who presents to the emergency room with complaints of cough, blood tinged sputum and sternal chest pain while coughing. Patient states that she has had these symptoms now for approximately 2 months. She has been seen by her primary care provider and the walk-in clinic. During her last visit was approximately one month ago she was placed on a Medrol Dosepak, which did not seem to help her symptoms. She states that she recently saw a fiscal economist in [place] due to an exacerbation of childhood asthma. States she used to use an inhaler routinely during her adolescent years, she thought she had "grew out of it". Recently she started having some dyspnea with physical activity; and now has a rescue inhaler. Review of systems: As per history of present illness and below otherwise all systems reviewed and negative. Past medical history: As per history of present illness and as reviewed below otherwise noncontributory. Surgical history: As per history of present illness and as reviewed below otherwise noncontributory. Social history: No reported history of drug or alcohol abuse. Family history: As per history of present illness and as reviewed below otherwise noncontributory. Physical exam: General: HEENT: Atraumatic, normocephalic, pupils equal and reactive bilaterally, negative for conjunctival pallor or scleral icterus, mucous membranes moist, throat clear, neck supple, nontender, trachea midline. No drooling or trismus noted. No meningeal signs Lungs: Clear to auscultation, breath sounds equal bilaterally, chest nontender. Heart: S1S2, regular rate and rhythm without overt murmur Abdomen: Soft, nondistended, nontender. Negative for masses or hepatosplenomegaly. Negative for costovertebral tenderness. Pelvis: Stable nontender. Genitourinary: Deferred. Rectal: Deferred. Skin: Intact, warm, dry. No lesions or rashes noted. Extremities: Atraumatic, negative for cords or calf pain. Neurovascular unremarkable. Neuro: Awake, alert, oriented. Cranial nerves II through XII unremarkable. Cerebellum unremarkable. Motor and sensory unremarkable throughout. Exam nonfocal. Notes: During her visit to her primary care provider approximately one month ago they did do a CTA of her chest and an ultrasound of her left lower extremity. At this time all these results were normal and she was told that the next step would be to see a vascular surgeon in [place] if she wanted to future evaluate her symptoms. CXR shows no evidence of infiltrate or pneumonia. Due to the patient's multiple previous visits with her primary care provider, walk-in clinic and fiscal economist I did encourage her to take the recommendation/referral for the vascular surgeon in [place]. Will treat her with Zpack and Phenergan with Codiene. Diagnostics: CXR Therapeutics: [] Impression: Bronchitis Plan: 1. Please take your antibiotic as prescribed. 2. Phenergan with codeine has been prescribed for your cough and throat discomfort/irritation. This medication will cause drowsiness so do not take it while driving or needing to be functioning outside of the house. Otherwise she may use Tylenol and/or ibuprofen as needed. Please use your inhaler as needed 3. Informed the general surgeon of your visit today. Your x-ray did not show a pneumonia but due to the longevity of symptoms you've been placed on an antibiotic. This should not delay your scheduled surgery. 4. Follow-up with your primary caregiver in the next 1-2 days. Return to the ED as needed and as discussed. Definitive disposition and diagnosis as appropriate pending reevaluation and review of above. - Related Data Allergies Allergy/AdvReac Type Severity Reaction Status Date / Time No Known Allergies Allergy Verified 11/11/17 11:08 Home Meds: Home Meds LORazepam 0.5 mg PO ASDIRECTED PRN 09/19/17 [History] Ranitidine HCl [Ranitidine] 75 mg PO ASDIRECTED 09/19/17 [History] Albuterol [Ventolin HFA] 2 puff INH ASDIRECTED PRN 09/25/17 [History] Ondansetron HCl [Zofran] 1 tab PO ASDIRECTED PRN 11/11/17 [History] Past Medical History HEENT History: Reports: None Cardiovascular History: Reports: None Respiratory History: Reports: Asthma Gastrointestinal History: Reports: GERD Other Gastrointestinal History: epigastric pain Genitourinary History: Reports: None [employer]ACHINE History: Reports: Musculoskeletal History: Reports: None Neurological History: Reports: Migraines Psychiatric History: Reports: Anxiety Endocrine/Metabolic History: Reports: None Hematologic History: Reports: None Immunologic History: Reports: None Oncologic (Cancer) History: Reports: None Dermatologic History: Reports: None - Infectious Disease History Infectious Disease History: Reports: Chicken Pox - Past Surgical History Head Surgeries/Procedures: Reports: None HEENT Surgical History: Reports: LASIK Other HEENT Surgeries/Procedures: lasik surgery GI Surgical History: Reports: EGD Female Surgical History: Reports: Section, LEEP, Tubal Ligation Social & Family History - Family History Family Medical History: Noncontributory - Tobacco Use Smoking Status *Q: Never Smoker Used Tobacco, but Quit: Yes Month/Year Tobacco Last Used: quit smoking 7 yrs ago Second Hand Smoke Exposure: No - Caffeine Use Caffeine Use: Reports: Coffee - Recreational Drug Use Recreational Drug Use: No Drug Use in Last 12 Months: No ED ROS GENERAL - Review of Systems Review Of Systems: ROS reveals no pertinent complaints other than HPI. ED EXAM, GENERAL - Physical Exam Exam: See Below (See dictation) Course - Vital Signs Last Recorded V/S: Last Vital Signs Temp 97.8 F 11/11/17 13:04 Pulse 88 11/11/17 13:04 Resp 18 11/11/17 13:04 BP 144/70 H 11/11/17 13:04 Pulse Ox 99 11/11/17 13:04 Departure - Departure Time of Disposition: 13:45 Disposition: Home, Self-Care 01 Clinical Impression: Bronchitis - Discharge Information Instructions: Acute Bronchitis, Adult, [id number] Referrals: PCP,None [Primary Care Provider] - Forms: ED Department Discharge Additional Instructions: The following information is given to patients seen in the emergency department who are being discharged to home. This information is to outline your options for follow-up care. We provide all patients seen in our emergency department with a follow-up referral. The need for follow-up, as well as the timing and circumstances, are variable depending upon the specifics of your emergency department visit. If you don't have a primary care physician on staff, we will provide you with a referral. We always advise you to contact your personal physician following an emergency department visit to inform them of the circumstance of the visit and for follow-up with them and/or the need for any referrals to a consulting specialist. The emergency department will also refer you to a specialist when appropriate. This referral assures that you have the opportunity for follow-up care with a specialist. All of these measure are taken in an effort to provide you with optimal care, which includes your follow-up. Under all circumstances we always encourage you to contact your private physician who remains a resource for coordinating your care. When calling for follow-up care, please make the office aware that this follow-up is from your recent emergency room visit. If for any reason you are refused follow-up, please contact the [facility] Department at and asked to speak to the emergency department charge nurse. [facility] [address] [place] [id number] 1. Please take your antibiotic as prescribed. 2. Phenergan with codeine has been prescribed for your cough and throat discomfort/irritation. This medication will cause drowsiness so do not take it while driving or needing to be functioning outside of the house. Otherwise you may use Tylenol and/or ibuprofen as needed. Please use your inhaler as needed. 3. Informed the general surgeon of your visit today. Your x-ray did not show a pneumonia but due to the longevity of symptoms you've been placed on an antibiotic. This should not delay your scheduled surgery. 4. Follow-up with your primary caregiver in the next 1-2 days. Return to the ED as needed and as discussed.
== END 2017-11-11 14:05 | disposition home or self-care (01) ==
LOC: MW.ED 12:40
DX: J40 Bronchitis, not specified as acute or chronic (principal); Z87.891 Personal history of nicotine dependence
CPT/HCPCS: 71046; 71046-26; 99283

== ENCOUNTER 2017-11-28 08:21 | Day surgery (SDC) | payer BC ==
[~2017-11-28 08:21] MED LIST changes: +Bupivacaine 0.5% 10 ML SDV ONE; +HYDROmorphone 2 MG/ML SDV ONE; +Ketorolac 30 MG/ML SDV ONE; +Lidocaine 2% 5 ML SDV ONE; +Midazolam 1 MG/ML 2 ML SDV ONE; +Ondansetron 4 MG/2 ML SDV ONE; +Propofol 200 MG/20 ML SDV ONE; +Rocuronium 10 MG/ML 10 ML Syringe ONE; +ceFAZolin 1 GM Vial ONE; +cefOXitin 2 GM in Premix Bag 1 BAG IV ONE; +fentaNYL 100 MCG/2 ML SDV IVPUSH PRN; +fentaNYL 100 MCG/2 ML SDV ONE
--- NOTE | 2017-11-28 08:54 | PCM.PREANE ---
Preanesthetic Assessment - Anesthesia/Transfusion/Family Hx Anesthesia History: Prior Anesthesia Without Reaction Family History of Anesthesia Reaction: No Transfusion History: No Prior Transfusion(s) - Review of Systems General: No Symptoms Pulmonary: No Symptoms Cardiovascular: No Symptoms Gastrointestinal: Abdominal Pain Neurological: No Symptoms Other: Reports: None - Physical Assessment Height: 1.63 m Weight: 76.204 kg ASA Class: 2 Mental Status: Alert & Oriented x3 Airway Class: Mallampati = 1 Dentition: Reports: Normal Dentition Thyro-Mental Finger Breadths: 3 Mouth Opening Finger Breadths: 3 ROM/Head Extension: Full Lungs: Clear to Auscultation, Normal Respiratory Effort Cardiovascular: Regular Rate, Regular Rhythm - Lab Values: Laboratory Last Values Urine HCG, Qual NEGATIVE (NEGATIVE) 11/28/17 08:36 - Allergies Allergies/Adverse Reactions: Allergies Allergy/AdvReac Type Severity Reaction Status Date / Time No Known Allergies Allergy Verified 11/11/17 11:08 - Blood Blood Available: No - Anesthesia Plan Pre-Op Medication Ordered: None - Acknowledgements Anesthesia Type Planned: General Anesthesia Pt an Appropriate Candidate for the Planned Anesthesia: Yes Alternatives and Risks of Anesthesia Discussed w Pt/Guardian: Yes Pt/Guardian Understands and Agrees with Anesthesia Plan: Yes PreAnesthesia Questionnaire HEENT History: Reports: None Cardiovascular History: Reports: None Respiratory History: Reports: Asthma (mild) Gastrointestinal History: Reports: GERD Other Gastrointestinal History: epigastric pain Genitourinary History: Reports: None CHICKEN PICKER History: Reports: Musculoskeletal History: Reports: None Neurological History: Reports: Migraines Psychiatric History: Reports: Anxiety Endocrine/Metabolic History: Reports: None Hematologic History: Reports: None Immunologic History: Reports: None Oncologic (Cancer) History: Reports: None Dermatologic History: Reports: None - Infectious Disease History Infectious Disease History: Reports: Chicken Pox - Past Surgical History Head Surgeries/Procedures: Reports: None HEENT Surgical History: Reports: LASIK Other HEENT Surgeries/Procedures: lasik surgery GI Surgical History: Reports: EGD Female Surgical History: Reports: Section, LEEP, Tubal Ligation - SUBSTANCE USE Smoking Status *Q: Never Smoker Tobacco Use Within Last Twelve Months: No Second Hand Smoke Exposure: No Recreational Drug Use History: No - HOME MEDS Home Medications: Home Meds LORazepam 0.5 mg PO ASDIRECTED PRN 09/19/17 [History] Ranitidine HCl [Ranitidine] 75 mg PO ASDIRECTED 09/19/17 [History] Albuterol [Ventolin HFA] 2 puff INH ASDIRECTED PRN 09/25/17 [History] Ondansetron HCl [Zofran] 1 tab PO ASDIRECTED PRN 11/11/17 [History] Montelukast [Singulair] 10 mg PO DAILY 11/25/17 [History] - CURRENT (IN HOUSE) MEDS Current Meds: Current Medications Fentanyl (Sublimaze) 50 mcg IVPUSH .Q5MIN PRN PRN Reason: Pain Lactated Ringer's (Ringers, Lactated) 1,000 mls @ 125 mls/hr IV ASDIRECTED BERONICA Lactated Ringer's (Ringers, Lactated) 1,000 mls @ 125 mls/hr IV ASDIRECTED BERONICA Discontinued Medications Bupivacaine HCl (Sensorcaine-Mpf 0.5%) Confirm Administered Dose 20 ml .ROUTE .STK-MED ONE Stop: 11/28/17 07:31 Cefazolin Sodium (Ancef) Confirm Administered Dose 1 gm .ROUTE .STK-MED ONE Stop: 11/28/17 07:31 Fentanyl (Sublimaze) Confirm Administered Dose 100 mcg .ROUTE .STK-MED ONE Stop: 11/28/17 07:29 Hydromorphone HCl (Dilaudid) Confirm Administered Dose 2 mg .ROUTE .STK-MED ONE Stop: 11/28/17 07:29 Cefoxitin Sodium 2 gm/ Premix 50 mls @ 100 mls/hr IV ONETIME ONE Stop: 11/14/17 06:29 Lactated Ringer's (Ringers, Lactated) 1,000 mls @ 125 mls/hr IV ASDIRECTED BERONICA Cefoxitin Sodium 2 gm/ Premix 50 mls @ 100 mls/hr IV ONETIME ONE Stop: 11/28/17 06:29 Cefoxitin Sodium (Mefoxin In Dextrose,Iso-Osm 2 Gm/50 Ml) Confirm Administered Dose 50 mls @ as directed .ROUTE .STK-MED ONE Stop: 11/28/17 08:02 Ketorolac Tromethamine (Toradol) Confirm Administered Dose 30 mg .ROUTE .STK- MED ONE Stop: 11/28/17 08:19 Lidocaine (Xylocaine-Mpf 2%) Confirm Administered Dose 5 ml .ROUTE .STK-MED ONE Stop: 11/28/17 07:29 Midazolam HCl (Versed 1 Mg/Ml) Confirm Administered Dose 2 mg .ROUTE .STK-MED ONE Stop: 11/28/17 07:29 Ondansetron HCl (Zofran) Confirm Administered Dose 4 mg .ROUTE .STK-MED ONE Stop: 11/28/17 07:29 Propofol (Diprivan 20 Ml) Confirm Administered Dose 200 mg .ROUTE .STK-MED ONE Stop: 11/28/17 07:29 Rocuronium [place] (Zemuron) Confirm Administered Dose 100 mg .ROUTE .STK-MED ONE Stop: 11/28/17 07:29
[2017-11-28] MEDS ORDERED: Scopolamine 1.5 MG Transdermal Patch TRDERM PRN (08:55)
[2017-11-28] MEDS ORDERED: Bupivacaine 0.5% 10 ML SDV ONE (08:59)
[2017-11-28] MEDS ORDERED: Dexamethasone 4 MG/ML 5 ML MDV ONE (09:30)
[2017-11-28] MEDS ORDERED: diphenhydrAMINE 50 MG/ML SDV ONE (09:30)
[2017-11-28] MEDS ORDERED: fentaNYL 100 MCG/2 ML SDV ONE (09:44)
[2017-11-28] MEDS ORDERED: Neostigmine Methylsulfate 1 MG/ML 5 ML Syringe ONE (10:07)
[2017-11-28] MEDS ORDERED: Glycopyrrolate 0.2 MG/ML SDV ONE (10:07)
[2017-11-28] MEDS ORDERED: Morphine 10 MG/ML Syringe IVPUSH PRN (10:32)
--- NOTE | 2017-11-28 10:37 | PCM.OPNOTE ---
- General Post-Op/Procedure Note Date of Surgery/Procedure: 11/28/17 Operative Procedure(s): Laparoscopic cholecystectomy Pre Op Diagnosis: Chronic right upper quadrant pain. Abnormal hepatobiliary scan. Post-Op Diagnosis: Same Anesthesia Technique: General ET Tube (ASA II) Primary Surgeon: Alberto Paul Fluid Replacement, Intraop: 1,400 EBL in mLs: 15 Condition: Good Free Text/Narrative:: Intake & Output 11/27/17 11/28/17 11/28/17 19:59 03:59 11:59 Output Total 80 Balance -80 Dictation [id number] CPT CODE 04564
[2017-11-28] MEDS ORDERED: Lactated Ringers 1,000 ML IV SCH (10:45)
[2017-11-28] MEDS: Acetaminophen/HYDROcodone 325-5 MG Tab PO PRN ×3 (11:15→12:30)
[2017-11-28] MEDS: Morphine 4 MG/ML Syringe IVPUSH PRN ×2 (11:45→12:30)
--- NOTE | 2017-11-28 15:27 | PCM48HPAN ---
Post Anesthesia Note - EVALUATION WITHIN 48HRS OF ANESTHETIC Vital Signs in Normal Range: Yes Patient Participated in Evaluation: Yes Respiratory Function Stable: Yes Airway Patent: Yes Cardiovascular Function Stable: Yes Hydration Status Stable: Yes Pain Control Satisfactory: Yes Nausea and Vomiting Control Satisfactory: Yes Mental Status Recovered: Yes Resp Rate: 13
--- NOTE | 2017-11-28 16:52 | OR ---
SURGEON: Alberto Paul M.D. DATE OF PROCEDURE: 11/28/2017 OPERATION PERFORMED: Laparoscopic cholecystectomy. ANESTHESIA: General endotracheal. [employer] CLASSIFICATION: II. PREOPERATIVE DIAGNOSIS: Chronic right upper quadrant pain, abnormal hepatobiliary scan. POSTOPERATIVE DIAGNOSIS: Chronic right upper quadrant pain, abnormal hepatobiliary scan. ESTIMATED BLOOD LOSS: 15 mL. INTRAOPERATIVE FLUID REPLACEMENT: 1400 mL. DESCRIPTION OF PROCEDURE: The patient was taken to the operating room and placed on the operating table in the supine position. Time-out was called for appropriate identification of the patient and procedure. Thigh-high TEDs and sequential compression boots were placed. Following satisfactory attainment of general endotracheal anesthesia, a Gram[place] catheter was placed in the patient's urinary bladder. The abdomen was then prepped with DuraPrep solution, and sterile drapes were applied. Skin just below the umbilicus was infiltrated with 0.5% Marcaine solution. A skin incision was made and deepened through the subcutaneous tissue obtaining hemostasis with the use of electrocautery. The Veress needle was introduced into the peritoneal cavity. Saline drop test was positive. Carbon dioxide pneumoperitoneum was established with a release set at 13 cm of water. Once we had a satisfactory pneumoperitoneum, 5 mm camera and port were placed through the infraumbilical incision. The patient was now positioned with her feet down and rolled to the left. Under camera vision, 12 mm subxiphoid, 5 mm midclavicular, and 5 mm anterior axillary ports were placed. Each incision had preemptively been infiltrated with 0.5% Marcaine solution. The gallbladder was grasped, and adhesions were taken down. The cholecystohepatic triangle was dissected free obtaining a good critical view of the cystic duct and underlying structures as well as the cystic artery. Once we had a good critical view, the cystic duct was hemo-clipped and divided with laparoscopic Metzenbaum scissor. The cystic artery was then again dissected free and also hemoclipped and divided with laparoscopic Metzenbaum scissor. The gallbladder was dissected away from its bed using electrocautery. No bile was spilled. Once gallbladder was amputated, this was placed in an Endopouch and secured. The right upper quadrant was inspected for hemostasis, and small bleeding sites were electrocoagulated. Surgicel was placed into the bed of the gallbladder after irrigating the right upper quadrant. No bile was seen. The right hemidiaphragm was then irrigated with 250 mL of saline containing 20 mL of 0.5% Marcaine solution. That solution was left in place. The 12-mm port and pouch containing gallbladder were removed through the subxiphoid incision. Under camera vision, 5 mm midclavicular and anterior axillary ports were removed, and finally, the infraumbilical camera and port were removed. The wounds were inspected for hemostasis, and bleeding sites were electrocoagulated. The infraumbilical and subxiphoid incisions were closed in two layers approximating the subcutaneous tissue with 3-0 Vicryl and the skin with subcuticular 4-0 Monocryl. The midclavicular and anterior axillary incisions were closed with subcuticular 4-0 Monocryl. All incisions were Steri-Stripped and dressed with sterile Tegaderm pads. Sponge, needle, and instrument counts were all correct. The patient tolerated the procedure well and was taken to the recovery room in stable condition. SUMEET / CHARLA /[id number]
[2017-11-28 17:00] VITALS: BP 110/63
== END 2017-11-28 15:15 | disposition home or self-care (01) ==
LOC: MW.SDS 08:21
PROVIDERS: ATTEND Surgery
DX: K81.1 Chronic cholecystitis (principal); J45.909 Unspecified asthma, uncomplicated; K21.9 Gastro-esophageal reflux disease without esophagitis; G43.909 Migraine, unspecified, not intractable, without status migrainosus; F41.9 Anxiety disorder, unspecified; Z79.899 Other long term (current) drug therapy
CPT/HCPCS: 47562; 81025; A9270; J1100; J1170; J1200; J2250; J2270; J2405; J3010; J7120; J0690; J1885; J2704